=== PATIENT | female | born 1995 | race Asian ===

== ENCOUNTER 2016-09-28 13:29 | Emergency (ER) | payer MEDICAID ==
[2016-09-28 13:33] VITALS: O2SAT 98
--- NOTE | 2016-09-28 13:51 | EDPHY ---
H & P Stated Complaint: suprapubic pain w/ back pain Time Seen by Provider: 09/28/16 13:50 - Personal History LMP (Females 10-55): 8-14 Days Ago Current Tetanus/Diphtheria Vaccine: Unsure Current Tetanus Diphtheria and Acellular Pertussis (TDAP): Unsure - Medical/Surgical History Hx Asthma: No Hx Chronic Respiratory Disease: No Hx Diabetes: No Hx Cardiac Disease: No Hx Renal Disease: No Hx Cirrhosis: No Hx Alcoholism: No Hx HIV/AIDS: No Hx Splenectomy or Spleen Trauma: No Other PMH: pmh- bipolar, uti's - Social History Smoking Status: Never smoked Constitutional: Initial Vital Signs Temperature (C) 36.8 C 09/28/16 13:32 Heart Rate 72 09/28/16 13:32 Respiratory Rate 14 09/28/16 13:32 Blood Pressure 108/75 09/28/16 13:32 O2 Sat (%) 98 09/28/16 13:32 O2 Delivery Mode Room Air Allergies/Adverse Reactions: Penicillins Allergy (Mild, Verified 03/02/15 20:26) Rash Home Medications: Medication Instructions Recorded Abilify 03/02/15 CLONAZEPAM 03/02/15 Fluconazole [Diflucan] 200 mg PO ONCE #2 tablet 03/02/15 Levothyroxine 03/02/15 [place] Carbonate 03/02/15 Nitrofurantoin Macrobid [Macrobid 100 mg PO BID #8 cap 03/02/15 100 mg (RX)] Cephalexin [Keflex (RX)] 500 mg PO TID #30 cap 09/28/16 HYDROcodone/APAP 10/325 [[place] 1 - 2 each PO Q4-6PRN PRN #20 tab 09/28/16 10/325] Medical Decision Making ED Course/Re-evaluation: CHIEF COMPLAINT: Lower abdominal pain, right flank pain. HISTORY OF PRESENT ILLNESS: The patient is a 21-year-old female with a history of UTI presenting with lower abdominal pain and right flank pain for the past few days. She denies having any urinary symptoms. She was seen at Urgent Care where she had a urinalysis taken. She was placed on an antibiotic but her continued symptoms sent her here. She is afebrile and denies nausea or vomiting. REVIEW OF SYSTEMS: A 10 point review of systems was performed and is negative with the exception of the elements mentioned in the history of present illness. PHYSICAL EXAM: HR, BP, O2 Sat, RR. Temp noted General Appearance: Alert, well hydrated, appropriate, and non-toxic appearing. Head: Atraumatic without scalp tenderness or obvious injury Eyes: Pupils equal, round, reactive to light and accommodation, EOMI, no trauma , no injection. Ears: Clear bilaterally, no perforation, normal landmarks Nose: Atraumatic, no rhinorrhea, clear. Throat: There is no erythema or exudates, no lesions, normal tonsils, mucus membranes moist. Neck: Supple, 2+ carotid upstroke, nontender, no lymphadenopathy. Respiratory: No retractions, no distress, no wheezes, and no accessory muscle use. Lungs are clear to auscultation bilaterally. Cardiovascular: Regular rate and rhythm, no murmurs, rubs, or gallops. Bilateral carotid, radial, dorsalis pedis, and posterior tibial pulses intact. Good capillary refill all extremities. Gastrointestinal: Suprapubic tenderness. She has right flank pain when I palpate her lower abdomen. Abdomen is soft, nontender, non-distended, no masses , no rebound, no guarding, no peritoneal signs. Musculoskeletal: Normal active ROM of all extremities, atraumatic. Neurological: Alert, appropriate, and interactive. The patient has normal DTRs and non-focal cranial nerves, motor, sensory, and cerebellar exam. Skin: No rashes, good turgor, no nodules on palpation. Past medical history:UTI, pyelonephritis. Past surgical history:Denies. Family history:Non-contributory. Social history:Here alone. DIAGNOSTICS/PROCEDURES/CRITICAL CARE TIME: Study: Ultrasound of the: pelvis Indication: Abdominal pain Results: No acute process. The study was read by the radiologist, Dr. Lebron. I viewed the images myself on the PACS system. DIFFERENTIAL DIAGNOSIS: The differential diagnosis for the patient's pain included but was not limited to UTI, pyelonephritis, outflow obstruction, appendicitis. MEDICAL DECISION MAKING: The patient is a 21 y/o female who presents with lower abdominal pain and flank pain for the past day. She was seen at Urgent care recently for UTI and placed on antibiotics. She appears to have a small UTI on Urgent Care's UA. She has right flank pain when I palpate her lower abdomen. I have a high concern for pyelonephritis. A UA will be taken. A pelvic ultrasound will be performed to rule out other processes. An IV was established and labs ordered. 1L IV saline administered for hydration, 30mg IV Toradol for pain. Patient's urine consistent with infection. 1gm IV Ceftriaxone administered. The patient's ultrasound per Dr. Lebron negative for acute process. The patient will be placed on Keflex and discharged. I discussed this with her and answered all of her questions. She was given warnings and return precautions prior to discharge. She is comfortable with the plan. - Data Points Laboratory Results: Laboratory Results 09/28/16 14:29 09/28/16 14:29 09/28/16 09/28/16 09/28/16 14:29 14:00 13:50 WBC 10.67 H 10^3/uL (3.80-9.50) RBC 4.71 10^6/uL (4.18-5.33) Hgb 14.9 g/dL (12.6-16.3) Hct 43.9 % (38.0-47.0) MCV 93.2 fL (81.5-99.8) MCH 31.6 pg (27.9-34.1) MCHC 33.9 g/dL (32.4-36.7) RDW 11.8 % (11.5-15.2) Plt Count 244 10^3/uL (150-400) MPV 9.3 fL (8.7-11.7) Neut % (Auto) 74.3 H % (39.3-74.2) Lymph % (Auto) 19.7 % (15.0-45.0) [place] % (Auto) 4.3 L % (4.5-13.0) Eos % (Auto) 0.9 % (0.6-7.6) Baso % (Auto) 0.5 % (0.3-1.7) Nucleat RBC Rel Count 0.0 % (0.0-0.2) Absolute Neuts (auto) 7.93 H 10^3/uL (1.70-6.50) Absolute Lymphs (auto) 2.10 10^3/uL (1.00-3.00) Absolute Monos (auto) 0.46 10^3/uL (0.30-0.80) Absolute Eos (auto) 0.10 10^3/uL (0.03-0.40) Absolute Basos (auto) 0.05 10^3/uL (0.02-0.10) Absolute Nucleated RBC 0.00 10^3/uL (0-0.01) Immature Gran % 0.3 % (0.0-1.1) Immature Gran # 0.03 10^3/uL (0.00-0.10) Sodium 140 mEq/L (134-144) Potassium 4.5 mEq/L (3.5-5.2) Chloride 107 mEq/L (97-110) Carbon Dioxide 21 L mEq/l (22-31) Anion Gap 12 mEq/L (8-16) BUN 8 mg/dL (7-23) Creatinine 0.7 mg/dL (0.6-1.0) Estimated GFR > 60 Glucose 86 mg/dL (70-100) Calcium 9.8 mg/dL (8.5-10.4) Beta HCG, Qual NEGATIVE Urine Color Cancelled YELLOW Urine Appearance Cancelled HAZY Urine pH Cancelled 7.0 (5.0-7.5) Ur Specific [place] Cancelled 1.013 (1.002-1.030) Urine Protein Cancelled NEGATIVE (NEGATIVE) Urine Ketones Cancelled NEGATIVE (NEGATIVE) Urine Blood Cancelled NEGATIVE (NEGATIVE) Urine Nitrate Cancelled NEGATIVE (NEGATIVE) Urine Bilirubin Cancelled NEGATIVE (NEGATIVE) Urine Urobilinogen Cancelled NEGATIVE EU (0.2-1.0) Ur Leukocyte Esterase Cancelled TRACE H (NEGATIVE) Urine RBC 15-25 H /hpf (0-3) Urine WBC 1-3 /hpf (0-3) Ur Epithelial Cells 2+ H /lpf (NONE-1+) Urine Bacteria TRACE H /hpf (NONE SEEN) Urine Mucus TRACE /lpf (NONE-1+) Ur Culture Indicated? INDICATED H (NI) Urine Glucose Cancelled NEGATIVE (NEGATIVE) Medications Given: Discontinued Medications Sodium Chloride (Ns) 1,000 mls @ 0 mls/hr IV ONCE ONE PRN Reason: Wide Open Stop: 09/28/16 14:14 Last Admin: 09/28/16 14:30 Dose: 1,000 mls Ceftriaxone Sodium/Dextrose (Rocephin 1 Gm (Premix)) 50 mls @ 100 mls/hr IV EDNOW ONE PRN Reason: Protocol Stop: 09/28/16 15:08 Last Admin: 09/28/16 14:59 Dose: 50 mls Ketorolac Tromethamine (Toradol) 30 mg IVP EDNOW ONE Stop: 09/28/16 14:14 Last Admin: 09/28/16 14:30 Dose: 30 mg Departure - Departure Disposition: Home, Routine, Self-Care Clinical Impression: Pyelonephritis Condition: Good Instructions: Kidney Infection (ED) Additional Instructions: Take Keflex as prescribed. Drink plenty of fluids. Follow up with your primary care provider in the next 2-3 days if symptoms are not improving. Return to the emergency department if you experience serious worsening of condition. Referrals: Samantha Davis MD [Primary Care Provider] - As per Instructions Prescriptions: Cephalexin [Keflex (RX)] 500 mg PO TID #30 cap HYDROcodone/APAP 10/325 [[place] 10/325] 1 - 2 each PO Q4-6PRN PRN #20 tab PRN Reason: Pain, Moderate Report Scribed for: Shravan Jauregui Report Scribed by: Ruddy Brizuela Date of Report: 09/28/16 Time of Report: 14:15
[2016-09-28] MEDS ORDERED: NS 1,000 ML IV ONE (14:13)
[2016-09-28] MEDS ORDERED: KETOROLAC 30 MG/1 ML SDV IVP ONE (14:13)
[2016-09-28 14:23] LABS: COLOR YELLOW; LEUKOCYTE ESTERASE,URINE TRACE (NEGATIVE); NITRITE,URINE NEGATIVE (NEGATIVE)
[2016-09-28 14:33] LABS: BACTERIA TRACE /hpf (NONE SEEN); MUCUS TRACE /lpf (NONE-1+); RBC,URINE 15-25 /hpf (0-3)
[2016-09-28 14:50] LABS: % IMMATURE GRANULYOCYTES 0.3 % (0.0-1.1); ABSOLUTE IMMATURE GRANULOCYTES 0.03 10^3/uL (0.00-0.10); ADD DIFF? NO; ADD MORPH? NO; ADD SCAN? NO; ATYPICAL LYMPHOCYTE FLAG 20 (0-99); FRAGMENT RBC FLAG 0 (0-99); HEMATOCRIT 43.9 % (38.0-47.0); HEMOGLOBIN 14.9 g/dL (12.6-16.3); LEFT SHIFT FLG 0 (0-99); LIPEMIA HEMOLYSIS FLAG 90 (0-99); MEAN CELL HEMOGLOBIN 31.6 pg (27.9-34.1); MEAN CELL HEMOGLOBIN CONCENTR. 33.9 g/dL (32.4-36.7); MEAN CELL VOLUME 93.2 fL (81.5-99.8); MEAN PLATELET VOLUME 9.3 fL (8.7-11.7); PLATELET CLUMPS FLAG 0 (0-99); PLATELET COUNT 244 10^3/uL (150-400); RED BLOOD CELL COUNT 4.71 10^6/uL (4.18-5.33); RED CELL DISTRIBUTION WIDTH 11.8 % (11.5-15.2)
[2016-09-28 15:01] LABS: ANION GAP 12 mEq/L (8-16); CALCIUM 9.8 mg/dL (8.5-10.4); CARBON DIOXIDE 21 mEq/l (22-31); CHLORIDE 107 mEq/L (97-110); CREATININE 0.7 mg/dL (0.6-1.0); GLOMERULAR FILTRATION RATE > 60; GLUCOSE 86 mg/dL (70-100); POTASSIUM 4.5 mEq/L (3.5-5.2); SODIUM 140 mEq/L (134-144)
--- NOTE | 2016-09-28 16:04 | US ---
Pelvic Sonogram (With Transvaginal) Clinical Indications: Abdominal and pelvic pain. Technique: Transabdominal and endovaginal exams. Transvaginal exam is added to better evaluate the uterus and ovaries. Findings: The uterus measures 3.9 x 5.7 x 7.1 cm with a 4 mm endometrial stripe. There is trace free fluid in the endometrial stripe. The IUD appears in adequate position. There is trace free fluid in the cul-de-sac. Right ovary measures 1.6 x 2.5 x 2.3 cm with normal flow and a normal resistive index of 0.45. Left ovary has a collapsing cyst versus follicle measuring 1.0 x 1.1 x 1.2 cm. The ovary measures 2.7 x 2.4 x 2.4 cm with normal color Doppler flow and resistive index of 0.45. Impression: 1. IUD in good position. 2. Trace free fluid in the cul-de-sac and left adnexa. No sonographic evidence to explain the patient 's abdominal pain. Critical results relayed by Dr. Lebron to Dr. Jauregui at 1553 hours on September 28, 2016.
--- NOTE | 2016-09-28 16:06 | US ---
Sonography Limited to the Right Lower Quadrant of the Abdomen (Appendiceal Region) Clinical History: 21-year-old female with generalized right lower quadrant pain and a mildly elevated white blood cell count of 10.7 K. Rule out appendicitis. Technique: A linear 12 MHz transducer was used to sonographically evaluate the right lower quadrant o f the abdomen. Cine clips were also acquired. Comparison Study: The patient had pelvic sonography performed today, which will be separately reporte d. Findings: There are peristalsing loops of bowel, but the appendix is not discretely seen. There is no localized fluid in the right lower quadrant, although the pelvic ultrasound demonstrated a small jose cruz unt of free fluid in the posterior cul-de-sac. There is no mesenteric adenitis. If there is a high cl inical concern regarding appendicitis, consider contrast-enhanced CT imaging. Impression: Nondiagnostic assessment of the appendix. Results were called to Dr. Shravan Jauregui. A test result has been communicated to a licensed care provider and documented in [facility], 3:52:42 PM , 09/28/2016, [facility] Message ID [id number].
[2016-09-28 16:20] VITALS: BP 128/86; PULSE 76; RESP 12; TEMP 98.8
== END 2016-09-28 16:20 | disposition home or self-care (01) ==
DX: N12 Tubulo-interstitial nephritis, not specified as acute or chronic (principal)
CPT/HCPCS: 96365; J0696; J1885

== ENCOUNTER → 2016-12-29 | Outpatient (CLI) | payer MEDICAID ==
[~2016-12-29] MED LIST: ACETAMINOPHEN 325 MG TAB PO ONE; INFLIXIMAB IV ONE; NS IV ONE; diphenhydrAMINE 25 MG CAP PO ONE; methylPREDNISolone SOD SUCC 40 MG/ML VIAL IVP ONE
[2016-12-29 15:50] VITALS: O2SAT 94
[2016-12-29 16:16] VITALS: BP 113/72; PULSE 87; RESP 16; TEMP 98.4
== END ==
LOC: EDSTATUS 07:00 → F1N 11:20 → UNDOADMOB 11:20 → F1NOP 11:25
PROVIDERS: ATTEND Internal Medicine
PROC: 3E033GC Introduction of Other Therapeutic Substance into Peripheral Vein, Percutaneous Approach (ICD-10-PCS; principal; 2016-12-29)
DX: M06.9 Rheumatoid arthritis, unspecified (principal)
CPT/HCPCS: J1745

== ENCOUNTER 2017-02-27 10:40 | Outpatient (CLI) | payer MEDICAID ==
[2017-02-27] MEDS ORDERED: ACETAMINOPHEN 325 MG TAB PO PRN (10:57)
[2017-02-27] MEDS ORDERED: methylPREDNISolone SOD SUCC 125 MG/2 ML VIAL IVP PRN (10:58)
[2017-02-27] MEDS ORDERED: diphenhydrAMINE 25 MG CAP PO ONE (11:00)
[2017-02-27] MEDS ORDERED: methylPREDNISolone SOD SUCC 40 MG/ML VIAL IVP ONE (11:00)
[2017-02-27] MEDS ORDERED: INFLIXIMAB IV ONE (11:30)
[2017-02-27] MEDS ORDERED: NS IV ONE (11:30)
[2017-02-27 14:33] VITALS: RESP 12
[2017-02-27 15:45] VITALS: BP 113/74; PULSE 80; TEMP 98.1; O2SAT 97
== END 2017-02-27 15:38 | disposition home or self-care (01) ==
LOC: UNDOADMOB 10:40 → F1NOP 10:40 → F1N 10:40 → F1NOP 15:38
PROVIDERS: ATTEND Internal Medicine
PROC: 3E0330M Introduction of Antineoplastic, Monoclonal Antibody, into Peripheral Vein, Percutaneous Approach (ICD-10-PCS; principal; 2017-02-27)
DX: M06.9 Rheumatoid arthritis, unspecified (principal)
CPT/HCPCS: J1745